=== PATIENT | female | born 1985 | race Caucasian/White ===

== ENCOUNTER → 2021-11-25 | Outpatient (CLI) | payer OTHER | END | disposition home or self-care (01) | LOC: LABWHC1 13:42 | PROVIDERS: ATTEND Family Medicine | DX: Z79.891 Long term (current) use of opiate analgesic (principal) | CPT/HCPCS: 36415; 84702 ==

== ENCOUNTER 2022-03-14 15:47 | Outpatient (CLI) | payer BC ==
[2022-03-14 16:59] VITALS: BP 134/64; PULSE 87; RESP 18; TEMP 98
--- NOTE | 2022-03-16 08:11 | P.MSEPDOC ---
Presenting Problems - Arrival Data Date of Arrival on Unit: 03/14/22 Time of Arrival on Unit: 15:47 Mode of Transport: Ambulatory - Complaint OB-Reason for Admission/Chief Complaint: Rule Out SROM Comment: rule out SROM 1500 clear small gush Medical History - Information : 7 Para: 2 Term: 2 : 0 Abortions: Spontaneous or Elective: 4 Number of Living Children: 2 - Gestational Age Gestational Age by DERICK (wks/days): 36 Weeks and 0 Days - History Complications: Prior , Hx. 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 Pt states she used heroin/fentanyl and crack cocaine. Review of Systems - Review of Systems Constitutional: No problems Breast: No problems ENT: No problems Cardiovascular: No problems Respiratory: No problems Gastrointestinal: No problems Genitourinary: No problems Musculoskeletal: No problems Neurological: No problems Skin: No problems Vital Signs - Temperature Temperature: 98.0 F Temperature Source: Oral - Pulse Right Pulse Oximetery Pulse Rate: 87 Pulse Assessment Method: Pulse Oximetry - Respirations Respiratory Rate: 18 Oxygen Delivery Method: Room Air O2 Sat by Pulse Oximetry: 95 - Blood Pressure Right Arm Blood Pressure: 134/64 Blood Pressure Mean: 87 Blood Pressure Source: Automatic Cuff Medical Screen Scoring - Uterine Contractions Frequency From (mins): 2 Frequency To (mins): 7 Duration From (seconds): 30 Duration To (seconds): 60 Intensity: Mild Resting: Soft to palpation - Assessment - Baby A Baseline FHR: 130 Heart Rate - NICHD Category: Category I (Normal) NST: Reactive Physician Notification - Physician Notified Physician Notified Date: 03/14/22 Physician Notified Time: 16:38 Physician: Marizol Stack New Order Received: Yes - Notification Comment Comment: order to D/C patient home with instructions Maternal Triage Index - Maternal Triage Index Presenting for scheduled procedure w/no complaint: No - Stat/Priority 1 Stat Priority 1: No - Urgent/Priority 2 Urgent Priority 2: Yes Provider Notified: Marizol Stack Provider Notified Time: 16:38 Criteria Met for Priority 2: rule out SROM-planned repeat C/S Disposition - Disposition OB Disposition: Discharge to home Discharge Date: 03/14/22 Discharge Time: 16:47 I agree with the RN Medical Screening Exam: Yes Case reviewed; plan agreed upon as documented in EMR&OBIX.: Yes Diagnosis: FALSE LABOR BEFORE 37 COMPLETED WEEKS OF GEST, SECOND TRI
== END 2022-03-14 16:47 | disposition home or self-care (01) ==
LOC: FBPOP 15:47
PROVIDERS: ATTEND Obstetrics & Gynecology
DX: O47.03 False labor before 37 completed weeks of gestation, third trimester (principal); Z3A.36 36 weeks gestation of pregnancy; Z88.1 Allergy status to other antibiotic agents; Z88.5 Allergy status to narcotic agent
CPT/HCPCS: 59025; 84112; 99213

== ENCOUNTER 2022-10-20 10:03 | Emergency (ER) | payer OTHER ==
[2022-10-20 10:36] VITALS: BP 133/75; PULSE 68; RESP 18; TEMP 98.1
[2022-10-20] MEDS ORDERED: KETOROLAC 15 MG/ML 1 ML VIAL IM STA (11:20)
--- NOTE | 2022-10-20 11:41 | ED ---
ENT HPI - General Chief complaint: Dental/Oral Stated complaint: Swollen lip, poss tooth abcess Time Seen by Provider: 10/20/22 10:49 Source: patient, RN notes reviewed Mode of arrival: ambulatory Limitations: no limitations - History of Present Illness Initial comments: This is a 37-year-old female who presents to the emergency department for dental pain and right-sided cheek swelling. States that the symptoms have been present for the last couple of days. Her dentist is unable to see her until next week, and she was instructed to come to the emergency department for antibiotics. She is requesting a shot of Toradol. She does have a history of multiple dental infections and also has severe dental caries. Denies any fevers, chills, sore throat, cough, dyspnea, chest pain, palpitations, abdominal pain, nausea, vomiting, diarrhea, back pain, or headaches. MD complaint: tooth pain Onset/Timin -: days(s) Context- Dental: history of dental caries, poor dental care - Related Data Home Medications Medication Instructions Recorded Confirmed Albuterol Inhaler [Ventolin Hfa 1 puff INHALATION RT-QID 03/14/22 03/14/22 Inhaler] Aspirin 81 mg PO DAILY 03/14/22 03/14/22 Docusate [Colace] 100 mg PO DAILY 03/14/22 03/14/22 Pnv No.95/Ferrous Fum/Folic AC 1 each PO DAILY 03/14/22 03/14/22 [ Multivitamin Tablet] Previous Rx's Medication Instructions Recorded Amoxic-Pot Clav 875-125Mg 1 tab PO Q12HR 10 Days #20 tab 10/20/22 [Augmentin 875-125] Ketorolac [Toradol] 10 mg PO Q6HR PRN #20 tab 10/20/22 Allergies Allergy/AdvReac Type Severity Reaction Status Date / Time cefuroxime [From Ceftin] Allergy Anaphylaxis Verified 10/20/22 10:36 cephalexin [From Keflex] Allergy Anaphylaxis Verified 10/20/22 10:36 ciprofloxacin [From Cipro] Allergy Anaphylaxis Verified 10/20/22 10:36 clindamycin Allergy Anaphylaxis Verified 10/20/22 10:36 codeine Allergy Rash/Hives Verified 10/20/22 10:36 Review of Systems ROS Statement: Those systems with pertinent positive or pertinent negative responses have been documented in the HPI. ROS Other: All systems not noted in ROS Statement are negative. Past Medical History Past Medical History: Asthma Additional Past Medical History / Comment(s): Hep C, kidney infection. History of Any Multi-Drug Resistant Organisms: None Reported Past Surgical History: Section Additional Past Surgical History / Comment(s): x3, left wrist cyst removed. Past Psychological History: No Psychological Hx Reported Smoking Status: Vaper Past Alcohol Use History: None Reported Past Drug Use History: None Reported General Exam Limitations: no limitations General appearance: alert, in no apparent distress Head exam: Present: atraumatic, normocephalic, normal inspection ENT exam: Present: other (Swelling to the right side of the cheek with multiple dental caries. She does have notable tenderness to the front 2 teeth.) Respiratory exam: Present: normal lung sounds bilaterally. Absent: respiratory distress, wheezes, rales, rhonchi, stridor Cardiovascular Exam: Present: regular rate, normal rhythm, normal heart sounds. Absent: systolic murmur, diastolic murmur, rubs, gallop, clicks Neurological exam: Present: alert, oriented X3, CN II-XII intact Psychiatric exam: Present: normal affect, normal mood Skin exam: Present: warm, dry, intact, normal color. Absent: rash Course Vital Signs 10/20/22 10:32 Temperature 98.1 F Pulse Rate 68 Respiratory 18 Rate Blood Pressure 133/75 O2 Sat by Pulse 100 Oximetry Medical Decision Making - Medical Decision Making This is a 37-year-old female who presents to the emergency department for a dental abscess. Prescription for 10 day course of Augmentin provided and Toradol was provided for pain relief. Advised that if she chooses to take the Toradol, she cannot take other [id number]-zyizomo anti-inflammatories such as ibup rofen. Instructed her to follow-up with her dentist as scheduled for definitive management. Patient was also educated on proper oral hygiene. Return precautions reviewed in depth, the patient is instructed to return to the emergency department with any new, worsening, or concerning symptoms. Patient verbalized understanding. This case was discussed in detail with the attending ED physician. Presentation, findings, and treatment plan discussed in detail as well. Disposition Clinical Impression: Dental abscess Disposition: HOME SELF-CARE Instructions (If sedation given, give patient instructions): Dental Abscess (ED) Additional Instructions: Return to the emergency department with any new, worsening, or concerning symptoms. Take the antibiotic as prescribed for 10 days and follow-up with your dentist for definitive management. The Toradol can be taken every 6 hours as needed, avoid taking other gaud-tdr-nmrhwzy anti-inflammatories such as ibuprofen if you are taking this. Follow up with your primary care provider in 1-2 days. Prescriptions: Amoxic-Pot Clav 875-125Mg [Augmentin 875-125] 1 tab PO Q12HR 10 Days #20 tab Ketorolac [Toradol] 10 mg PO Q6HR PRN #20 tab PRN Reason: Pain Is patient prescribed a controlled substance at d/c from ED?: No Referrals: Nonstaff,Physician [Primary Care Provider] - 1-2 days
== END 2022-10-20 11:58 | disposition home or self-care (01) ==
LOC: EC 10:03
DX: K04.7 Periapical abscess without sinus (principal); J45.909 Unspecified asthma, uncomplicated; F17.290 Nicotine dependence, other tobacco product, uncomplicated; Z88.5 Allergy status to narcotic agent; Z88.1 Allergy status to other antibiotic agents; Z79.82 Long term (current) use of aspirin; Z79.899 Other long term (current) drug therapy
CPT/HCPCS: 96372; 99283; J1885